=== PATIENT | female | born 1960 | race American Indian/Alaskan Native ===

== ENCOUNTER 2023-09-25 11:37 | Emergency (ER) | payer OTHER ==
[~2023-09-25] VITALS: Ht 165.1 cm; Wt 99.8 kg
[~2023-09-25 11:37] MED LIST: CEPHALEXIN500 MG PO; CLARITIN10 MG PO; FLUTICASONE PRO16 GM NS; IMITREX100 MG PO; MOTRIN800 MG PO; TRAMADOL HCL50 MG PO
[2023-09-25] MEDS ORDERED: HYDROCODON-ACE1 EA10 PO (13:14)
[2023-09-25] MEDS ORDERED: METHYLPREDNISOLO4 M1 PO ×2 (13:14→13:25)
[2023-09-25 13:27] VITALS: BP 119/71
== END 2023-09-25 13:28 | disposition home or self-care (01) ==
LOC: ED 11:37
DX: M19.011 Primary osteoarthritis, right shoulder (principal); M50.322 Other cervical disc degeneration at C5-C6 level; M51.34 Other intervertebral disc degeneration, thoracic region; Z87.891 Personal history of nicotine dependence; Z88.1 Allergy status to other antibiotic agents; Z88.2 Allergy status to sulfonamides; Z91.040 Latex allergy status
CPT/HCPCS: 72040; 72070; 73030; J2270